=== PATIENT | male | born 1975 | race Caucasian/White ===

== ENCOUNTER 2021-07-29 06:31 | Day surgery (SDC) | payer OTHER ==
[2021-07-29] MEDS ORDERED: Sodium Chloride 0.9% 1,000 ML IV SCH (07:00)
[2021-07-29] MEDS ORDERED: Midazolam 1 MG/ML 2 ML SDV ONE (07:27)
[2021-07-29] MEDS ORDERED: fentaNYL 100 MCG/2 ML SDV ONE (07:27)
[2021-07-29] MEDS ORDERED: Propofol 200 MG/20 ML SDV ONE (07:27)
[2021-07-29 07:32] LABS: CORONAVIRUS COVID-19 NAA NEGATIVE (NEGATIVE)
--- NOTE | 2021-07-29 11:58 | OR ---
DATE OF PROCEDURE: 07/29/2021 SURGEON: Jimmie Marie MD PROCEDURE: Esophagogastroduodenoscopy. FINDINGS: 1. Mild inflammation of the GE junction concerning for reflux disease. 2. Retained liquid within the stomach suggesting delayed gastric emptying or nil per os. COMPLICATIONS: None. TALENT ACQUISITION PROGRAM MANAGER: None. ANESTHESIA: MAC. PREOPERATIVE DIAGNOSIS: Epigastric pain. POSTOPERATIVE DIAGNOSIS: Epigastric pain. RISKS: Risks, benefits, alternatives, and limitations including, but not limited to infection, bleeding, perforation, false positives and false negatives were explained to the patient who wished to proceed. PROCEDURE IN DETAIL: The patient was placed in left lateral decubitus position. EGD scope was introduced and advanced atraumatically to the second part of the duodenum. No evidence of duodenitis or ulceration were noted. There was some liquid and some solid food material remaining in the stomach. Suction irrigation techniques were used to remove as much as possible. The GE junction had mild inflammation concerning for reflux disease, biopsied multiple times using cold biopsy forceps. The remainder of the esophagus was inspected without abnormality. The air was removed from the stomach. The patient tolerated the procedure well. Jimmie Marie MD /[id number]
== END 2021-07-29 09:07 | disposition home or self-care (01) ==
LOC: JP.SDS 06:31
PROVIDERS: ATTEND Surgery
DX: K21.9 Gastro-esophageal reflux disease without esophagitis (principal); I10 Essential (primary) hypertension; G47.33 Obstructive sleep apnea (adult) (pediatric); Z01.812 Encounter for preprocedural laboratory examination; Z20.822 Contact with and (suspected) exposure to COVID-19
CPT/HCPCS: 0241U; 43239; 88305; J2250; J2704; J3010; J7030

== ENCOUNTER 2022-05-27 07:56 | Day surgery (SDC) | payer OTHER ==
[~2022-05-27 07:56] MED LIST: Midazolam 1 MG/ML 2 ML SDV ONE; Propofol 200 MG/20 ML SDV ONE; fentaNYL 100 MCG/2 ML SDV ONE
[2022-05-27] MEDS ORDERED: Lactated Ringers 1,000 ML IV SCH (09:15)
== END 2022-05-27 11:36 | disposition home or self-care (01) ==
LOC: JP.SDS 07:56
PROVIDERS: ATTEND Student in an Organized Health Care Education/Training Program
DX: Z12.11 Encounter for screening for malignant neoplasm of colon (principal); D12.5 Benign neoplasm of sigmoid colon; I10 Essential (primary) hypertension; E78.5 Hyperlipidemia, unspecified; E66.01 Morbid (severe) obesity due to excess calories
CPT/HCPCS: 45385; 88305; J2250; J2704; J3010; J7120

== ENCOUNTER 2025-01-18 16:27 | Emergency (ER) | payer OTHER ==
[2025-01-18] MEDS: Lidocaine 1% with EPINEPHrine 1:100,000 20 ML MDV INJECT ONE (17:00)
== END 2025-01-18 17:25 | disposition home or self-care (01) ==
LOC: JP.ED 16:27
DX: S61.411A Laceration without foreign body of right hand, initial encounter (principal); I10 Essential (primary) hypertension; E78.00 Pure hypercholesterolemia, unspecified; E11.9 Type 2 diabetes mellitus without complications; E66.9 Obesity, unspecified; K21.9 Gastro-esophageal reflux disease without esophagitis; Z79.899 Other long term (current) drug therapy; Z68.37 Body mass index [BMI] 37.0-37.9, adult; W26.8XXA Contact with other sharp object(s), not elsewhere classified, initial encounter
CPT/HCPCS: 12002; 99282; A4217; J2004